=== PATIENT | female | born 1985 | race Caucasian/White ===

== ENCOUNTER 2022-04-24 20:22 | Emergency (ER) | payer BC, SELFPAY ==
--- NOTE | ~2022-04-24 | XR_ITS ---
Portable chest x-ray Comparison: None Clinical History: Shortness of breath, Covid infection Findings: Questionable 1 cm left upper lobe pulmonary nodule. Right lung clear. No pleural effusion or pneumothorax. Cardiomediastinal silhouette is stable. Bones and soft tissues are unremarkable. Impression: Questionable 1 cm left upper lobe pulmonary nodule versus vessel en face. Consider CT to better exclu de pulmonary nodule. Reviewed, dictated and finalized at [facility]. LE MANAGER Impression: Questionable 1 cm left upper lobe pulmonary nodule versus vessel en face. Consi mitesh CT to better exclude pulmonary nodule.
[2022-04-24 20:27] VITALS: BP 113/72; PULSE 117; RESP 20; TEMP 36.2; O2SAT 100
--- NOTE | 2022-04-24 20:39 | ED.URI ---
HPI - URI/Sore Throat General Chief Complaint: Upper Respiratory Infection Stated Complaint: covid test Time Seen by Provider: 04/24/22 20:38 Source: patient Mode of arrival: ambulatory Limitations: no limitations History of Present Illness HPI Narrative: Patient is a 37 y/o female who presents to the ED with c/o URI sx's. Patient reports she developed fevers, cough, congestion, rhinorrhea, sore throat, body aches, headache last Tuesday into Tuesday. Her daughter was diagnosed with COVID-19. Patient has not had herself tested yet. This afternoon, patient began having slight discomfort and pressure in her midsternal chest, in addition to mild difficulty breathing, which prompted her presentation. She attributed some of the pain and difficulty breathing to her anxiety. Patient took anxiety medication and Tylenol around 6 PM and reported improvement of chest pain. She denies pain with deep breathing, nausea, vomiting, abdominal pain. Patient is vaccinated for COVID. Related Data Allergies Allergy/AdvReac Type Severity Reaction Status Date / Time poison moo extract Allergy Mild Unknown Verified 04/24/22 21:19 sertraline [From Zoloft] Allergy Hallucinati Verified 04/24/22 21:19 ng ibuprofen AdvReac Other Verified 04/24/22 21:19 Review of Systems Review of Systems: CONSTITUTIONAL: See HPI. ENT: See HPI. CARDIOVASCULAR: See HPI. RESPIRATORY: See HPI. GASTROINTESTINAL: Denies abdominal pain, nausea, vomiting, or diarrhea. GENITOURINARY: Denies dysuria or hematuria. SKIN: Denies rash or itching. MUSCULOSKELETAL: See HPI. NEUROLOGIC: See HPI. All systems reviewed & are unremarkable except as noted in HPI and below PMFSH Past Medical History Medical History No pertinent past medical history Surgical History Surgical History No pertinent past surgical history Social History Social History Smoking status: Current every day smoker Exam Narrative: GENERAL: Well appearing, well-nourished, non-toxic, in no acute distress. HEAD: Normocephalic, atraumatic. EYES: PERRLA/EOMI, conjunctiva clear. ENT: Normal nose. No nasal discharge. Poor dentition. No significant posterior pharynx erythema. No tonsillar hypertrophy or exudate. Uvula midline. NECK: Supple. No adenopathy, no masses. RESPIRATORY: Airway patent, respirations nonlabored. Clear to auscultation bilaterally, no rales, rhonchi, wheezing. CARDIOVASCULAR: Regular rate and rhythm without murmurs, rubs, or gallops. Radial pulses 2+ and equal bilaterally. ABDOMINAL: Soft, nontender, nondistended, no hepatosplenomegaly. Normoactive BS. MUSCULOSKELETAL: Moves all extremities. Strength/ROM intact without gross deformities. SKIN: Warm, dry, normal color. No rashes. NEURO: A&O X3. Speech clear. Cranial nerves II-XII grossly intact. Steady gait. No ataxic movements. PSYCHIATRIC: Appropriate mood and affect. Normal interaction. Course Vital Signs Vital signs: Vital Signs Temperature 97.1 F L 04/24/22 20:27 Pulse Rate 117 H 04/24/22 20:27 Respiratory Rate 20 04/24/22 20:27 Blood Pressure 113/72 04/24/22 20:27 Pulse Oximetry 100 04/24/22 20:27 Oxygen Delivery Room Air 04/24/22 20:27 Temperature 97.1 F L 04/24/22 20:27 Pulse Rate 64 04/24/22 22:00 Respiratory Rate 14 04/24/22 22:00 Blood Pressure 104/65 04/24/22 22:00 Pulse Oximetry 99 04/24/22 22:00 Oxygen Delivery Room Air 04/24/22 20:27 MDM - URI/Sore Throat MDM Narrative Medical decision making narrative: Patient presented to ED with several day history of upper respiratory symptoms, known exposure to COVID from her daughter. Patient initially mildly tachycardic upon arrival, tachycardia resolved by the time of my evaluation. Patient in no acute distress. ED work-up reassuring. CBC and
--- NOTE | 2022-04-24 20:42 | ECG_ITS ---
Measurements Intervals [place] Rate: 61 P: 52 [place]: 173 QRS: -26 QRSD: 90 T: 59 QT: 385 QTc: 390 Interpretive Statements SINUS RHYTHM INDETERMINATE AXIS ABNORMAL ECG NO PREVIOUS ECG AVAILABLE FOR COMPARISON Electronically Signed On 04-25-2022 11:29:31 HEAD OF INSIGHT by Meliton Ga M.D.
[2022-04-24 21:15] VITALS: BP 107/66; PULSE 64; RESP 18; O2SAT 100
[2022-04-24 21:23] LABS: Basophils Absolute Auto 0.1 K/mm3 (0.0-0.1); Basophils Percent Auto 0.6 % (0.2-1.2); Eosinophils Absolute Auto 0.2 K/mm3 (0-0.3); Eosinophils Percent Auto 2.3 % (0-4.4); Hematocrit 39.3 % (37.0-47.0); Hemoglobin 13.6 g/dL (12.0-15.0); Immature Granulocyte Absolute 0.02 K/mm3 (0.00-0.031); Immature Granulocyte Percent A 0.2 % (0-0.5); Lymphocytes Absolute Auto 3.12 K/mm3 (0.9-3.2); Mean Corpuscular HGB Conc 34.6 g/dl (32-36); Mean Corpuscular Hemoglobin 34.5 pg (26-34); Mean Corpuscular Volume 99.7 fl (80-100); Mean Platelet Volume 9.4 fl (7.4-10.4); Monocytes Absolute Auto 0.9 K/mm3 (0.1-0.6); Monocytes Percent Auto 10.4 % (2.6-8.5); Neutrophils Absolute Auto 4.2 K/mm3 (1.3-6.7); Neutrophils Percent Auto 49.5 % (45.5-73.1); Platelet Count Result 245 k/mm3 (150-375); Red Blood Count 3.94 M/mm3 (4.2-5.4); Red Cell Distribution Width 12.2 % (11.5-14.5); White Blood Count 8.4 K/mm3 (4.5-10.0)
[2022-04-24 21:30] VITALS: BP 101/61; PULSE 61; RESP 15; O2SAT 97
[2022-04-24 21:38] LABS: Alanine Aminotransferase 14 U/L (6-35); Albumin Level 3.8 g/dL (3.5-5.1); Alkaline Phosphatase 43 U/L (38-126); Anion Gap 3 mmol/L (8-16); Aspartate Amino Transferase 19 U/L (14-36); Bilirubin,Total 0.6 mg/dL (0.2-1.3); Blood Urea Nitrogen 12 mg/dL (7-17); Calcium 8.7 mg/dL (8.4-10.2); Carbon Dioxide 30 mmol/L (22-30); Chloride 103 mmol/L (98-107); Estimated Glomerular Filt Rate > 60; Glucose 101 mg/dL (65-110); Potassium 3.3 mmol/L (3.4-5.0); Sodium 136 mmol/L (137-145)
[2022-04-24 21:41] LABS: D Dimer 0.32 ug/mL (<0.48)
[2022-04-24 21:45] VITALS: BP 106/63; PULSE 61; RESP 14; O2SAT 98
[2022-04-24 21:45] LABS: Influenza A QL RT-PCR Negative (Negative); Influenza B QL RT-PCR Negative (Negative); SARS-CoV-2 RNA PCR Negative
[2022-04-24 21:50] LABS: Troponin I < 0.012 ng/mL (0.000-0.034)
[2022-04-24 22:00] VITALS: BP 104/65; PULSE 64; RESP 14; O2SAT 99
== END 2022-04-24 23:43 | disposition home or self-care (01) ==
PROVIDERS: Emergency Provider Physician Assistant; PCP Family Medicine
DX: J06.9 Acute upper respiratory infection, unspecified (principal); F17.200 Nicotine dependence, unspecified, uncomplicated; Z20.822 Contact with and (suspected) exposure to COVID-19
CPT/HCPCS: 36415; 71045; 80053; 84484; 85025; 85380; 87636; 93005; 99284

== ENCOUNTER 2022-04-27 08:42 | Emergency (ER) | payer BC, SELFPAY ==
--- NOTE | ~2022-04-27 | XR_ITS ---
EXAMINATION: XR chest 1V portable DATE: 04/27/2022 09:19 INDICATION: Shortness of breath. Syncope. TECHNIQUE: A single frontal view of the chest was obtained on 2 radiographs. COMPARISON: Chest one view 04/24/2022 FINDINGS: The chest demonstrates clear lungs without pneumonia, pleural effusion, or pneumothorax. Th e heart size is normal. IMPRESSION: 1. No acute cardiopulmonary disease. Reviewed, dictated and finalized at location A. NG BOARD ASSEMBLER
[2022-04-27 08:58] VITALS: BP 112/74; PULSE 60; RESP 16; TEMP 36.9; O2SAT 100
[2022-04-27 09:06] VITALS: O2SAT 99
--- NOTE | 2022-04-27 09:09 | ECG_ITS ---
Measurements Intervals [place] Rate: 54 P: 50 [place]: 161 QRS: 13 QRSD: 92 T: 53 QT: 420 QTc: 398 Interpretive Statements SINUS BRADYCARDIA WITH SINUS ARRHYTHMIA POSSIBLE RIGHT VENTRICULAR CONDUCTION DELAY [RSR (QR) IN V1/V2] COMPARED TO ECG 04/24/2022 21:07:47 SINUS BRADYCARDIA NOW PRESENT SINUS ARRHYTHMIA NOW PRESENT Electronically Signed On 04-27-2022 14:51:07 EVP GENERAL COUNSEL by Polo Avendaño M.D.
--- NOTE | 2022-04-27 09:09 | ED.URI ---
HPI - URI/Sore Throat General Chief Complaint: Upper Respiratory Infection Stated Complaint: back, chest pain Time Seen by Provider: 04/27/22 08:51 History of Present Illness HPI Narrative: Patient with personal history of daily tobacco use presents with recent URI symptoms, she comes in today because she feels sharp pain in her chest and more difficulty breathing for the last 2 days, she states that she does have a family history of heart disease, her mom had stents placed when she was in her mid 40s and her grandmother had stents placed when she was in her 50s. She did follow-up with a machine room engineer in [place] but has not had a doctor since she moved here. Related Data Allergies Allergy/AdvReac Type Severity Reaction Status Date / Time poison moo extract Allergy Mild Unknown Verified 04/24/22 21:19 sertraline [From Zoloft] Allergy Hallucinati Verified 04/24/22 21:19 ng ibuprofen AdvReac Other Verified 04/24/22 21:19 Review of Systems Review of Systems: CONST: No fever. HEENT: Runny nose C/V: chest pain RESP: cough GI: No abdominal pain : No dysuria. M/S: No joint pain. SKIN: No rash. NEURO: [No headache or focal numbness or weakness] PSYCH: Slightly anxious PMFSH Past Medical History Medical History No pertinent past medical history Surgical History Surgical History No pertinent past surgical history Family History Family History (Updated 04/27/22 @ 10:18 by Nancy Ambrocio MD) Other Acute myocardial infarction Social History Social History Smoking status: Current every day smoker Exam Narrative: EXAMINATION OF ORGAN SYSTEMS/BODY AREAS: Constitutional: Vital signs per nursing GENERAL:[No acute distress, non-toxic appearing.] HEAD: Normal with no signs of head trauma. EYES: EOMI, conjunctiva normal ENT: Hearing grossly intact LUNGS: Nonlabored breathing. Clear to auscultation bilaterally HEART: [Regular rate and rhythm] ABD: [Soft], [nontender to palpation] EXT: Normal range of motion, no lower extremity edema or tenderness SKIN: [No rashes or lesions.] NEURO: [Alert and oriented x 3. No gross focal sensory or strength deficits.] PSYCH: Normal affect Course Vital Signs Vital signs: Vital Signs Temperature 98.5 F 04/27/22 08:58 Pulse Rate 60 04/27/22 08:58 Respiratory Rate 16 04/27/22 08:58 Blood Pressure 112/74 04/27/22 08:58 Pulse Oximetry 100 04/27/22 08:58 Temperature 98.5 F 04/27/22 08:58 Pulse Rate 60 04/27/22 08:58 Respiratory Rate 16 04/27/22 08:58 Blood Pressure 112/74 04/27/22 08:58 Pulse Oximetry 99 04/27/22 09:06 Oxygen Delivery Room Air 04/27/22 09:06 MDM - URI/Sore Throat MDM Narrative Medical decision making narrative: ED COURSE AND MEDICAL DECISION MAKING: This 37-year old patient presents with symptoms most suggestive of viral upper respiratory tract infection. Lungs are clear bilaterally without any respiratory distress or accessory muscle use. However given her complaint of chest pain or shortness of breath and recent URI, I will obtain a D-dimer to rule out PE, though she is PERC negative, as well as cardiac work-up given her family history of cardiac disease. EKG - 12-Lead: Performed at 0918. Interpreted by me. [Sinus rhythm]. Rate 54. [Normal] axis. MT-interval [normal]. QRS duration [normal]. QTc [normal]. [No ST segment elevation or depression]. [T-wave normal]. Impression: No EKG evidence of acute ischemia or dysrhythmia. Troponin and ddimer negative, CXR reviewed by myself no signs of PTX, consolidations. No widened mediastinum to suggest dissection and she is overall quite well appearing without neurovascular deficits to suggest this. I did discuss the findings with the patient, she is reassured and demonstrated her precautions, as she has no doctor here I
[2022-04-27 09:26] LABS: Basophils Absolute Auto 0.1 K/mm3 (0.0-0.1); Basophils Percent Auto 0.7 % (0.2-1.2); Eosinophils Absolute Auto 0.2 K/mm3 (0-0.3); Eosinophils Percent Auto 2.4 % (0-4.4); Hematocrit 38.6 % (37.0-47.0); Hemoglobin 13.1 g/dL (12.0-15.0); Immature Granulocyte Absolute 0.02 K/mm3 (0.00-0.031); Immature Granulocyte Percent A 0.2 % (0-0.5); Lymphocytes Absolute Auto 2.66 K/mm3 (0.9-3.2); Lymphocytes Percent Auto 32.4 % (18.3-44.2); Mean Corpuscular HGB Conc 33.9 g/dl (32-36); Mean Corpuscular Hemoglobin 34.6 pg (26-34); Mean Corpuscular Volume 101.8 fl (80-100); Mean Platelet Volume 9.6 fl (7.4-10.4); Monocytes Absolute Auto 0.7 K/mm3 (0.1-0.6); Neutrophils Absolute Auto 4.5 K/mm3 (1.3-6.7); Neutrophils Percent Auto 55.3 % (45.5-73.1); Platelet Count Result 229 k/mm3 (150-375); Red Blood Count 3.79 M/mm3 (4.2-5.4); Red Cell Distribution Width 12.2 % (11.5-14.5); White Blood Count 8.2 K/mm3 (4.5-10.0)
[2022-04-27 09:57] LABS: Anion Gap 0 mmol/L (8-16); Blood Urea Nitrogen 10 mg/dL (7-17); Calcium 8.2 mg/dL (8.4-10.2); Carbon Dioxide 27 mmol/L (22-30); Chloride 107 mmol/L (98-107); D Dimer 0.39 ug/mL (<0.48); Estimated CRCL calculation 92 ml/min; Estimated Glomerular Filt Rate > 60; Glucose 92 mg/dL (65-110); Potassium 3.8 mmol/L (3.4-5.0); Sodium 134 mmol/L (137-145)
[2022-04-27 10:06] LABS: Troponin I < 0.012 ng/mL (0.000-0.034)
[2022-04-27 10:36] VITALS: BP 101/68; PULSE 55; RESP 20; O2SAT 100
== END 2022-04-27 10:37 | disposition home or self-care (01) ==
PROVIDERS: Emergency Provider Emergency Medicine
DX: J06.9 Acute upper respiratory infection, unspecified (principal); R07.9 Chest pain, unspecified; F17.200 Nicotine dependence, unspecified, uncomplicated; R00.1 Bradycardia, unspecified; R94.31 Abnormal electrocardiogram [ECG] [EKG]
CPT/HCPCS: 36415; 71045; 80048; 84484; 85025; 85380; 93005; 99284

== ENCOUNTER 2022-07-10 14:30 | Emergency (ER) | payer BC, SELFPAY ==
[2022-07-10 14:56] VITALS: BP 118/78; PULSE 60; RESP 18; TEMP 36.4; O2SAT 100
[2022-07-10 15:42] LABS: Basophils Absolute Auto 0.1 K/mm3 (0.0-0.1); Basophils Percent Auto 0.6 % (0.2-1.2); Eosinophils Absolute Auto 0.2 K/mm3 (0-0.3); Eosinophils Percent Auto 2.4 % (0-4.4); Hematocrit 44.7 % (37.0-47.0); Hemoglobin 14.8 g/dL (12.0-15.0); Immature Granulocyte Absolute 0.02 K/mm3 (0.00-0.031); Immature Granulocyte Percent A 0.2 % (0-0.5); Lymphocytes Absolute Auto 3.04 K/mm3 (0.9-3.2); Lymphocytes Percent Auto 36.6 % (18.3-44.2); Mean Corpuscular HGB Conc 33.1 g/dl (32-36); Mean Corpuscular Hemoglobin 33.9 pg (26-34); Mean Corpuscular Volume 102.5 fl (80-100); Mean Platelet Volume 9.1 fl (7.4-10.4); Monocytes Absolute Auto 0.9 K/mm3 (0.1-0.6); Monocytes Percent Auto 10.2 % (2.6-8.5); Neutrophils Absolute Auto 4.1 K/mm3 (1.3-6.7); Platelet Count Result 263 k/mm3 (150-375); Red Blood Count 4.36 M/mm3 (4.2-5.4); Red Cell Distribution Width 11.7 % (11.5-14.5); White Blood Count 8.3 K/mm3 (4.5-10.0)
[2022-07-10 15:44] LABS: Alanine Aminotransferase 14 U/L (6-35); Albumin Level 4.2 g/dL (3.5-5.1); Alkaline Phosphatase 55 U/L (38-126); Anion Gap 4 mmol/L (8-16); Aspartate Amino Transferase 17 U/L (14-36); Bilirubin,Total 0.8 mg/dL (0.2-1.3); Blood Urea Nitrogen 8 mg/dL (7-17); Calcium 8.7 mg/dL (8.4-10.2); Carbon Dioxide 28 mmol/L (22-30); Chloride 106 mmol/L (98-107); Estimated CRCL calculation 95 ml/min; Estimated Glomerular Filt Rate > 60; Glucose 86 mg/dL (65-110); Lipase 59 U/L (23-300); Potassium 4.2 mmol/L (3.4-5.0); Sodium 138 mmol/L (137-145)
--- NOTE | 2022-07-10 16:56 | ED.ABDPAIN ---
HPI - Abdominal Pain General Chief Complaint: Abdominal Pain Stated Complaint: MIGRAINE ROSADO,ABD PAIN Time Seen by Provider: 07/10/22 16:38 History of Present Illness HPI narrative: 37-year-old female presented the to emergency department for evaluation of migraine and intermittent abdominal pain. Patient states he does have prior history of migraines but states that she has had worsening headache over the last few days. Patient states she has also had intermittent nausea and decreased p.o. intake. Related Data Allergies Allergy/AdvReac Type Severity Reaction Status Date / Time poison moo extract Allergy Mild Unknown Verified 07/10/22 17:39 sertraline [From Zoloft] Allergy Hallucinati Verified 07/10/22 17:39 ng ibuprofen AdvReac Other Verified 07/10/22 17:39 Review of Systems Review of Systems: All systems reviewed & are unremarkable except as noted in HPI and below PMFSH Past Medical History Medical History No pertinent past medical history Surgical History Surgical History No pertinent past surgical history Family History Family History (Updated 04/27/22 @ 10:18 by Nancy Ambrocio MD) Other Acute myocardial infarction Social History Social History Smoking status: Current every day smoker Exam Narrative: APPEARANCE: Well appearing, no pain, no distress, well-nourished. HEAD: normocephalic, atraumatic. EYES: PERRLA/EOMI, conjunctivae clear. NOSE: Normal no drainage EARS:TMS clear with good light reflex. THROAT: Pharynx clear, no exudate. NECK: Supple. No adenopathy, no masses. RESPIRATORY: Airway patent, respirations nonlabored. Clear to auscultation bilaterally, no rales, rhonchi, wheezing. CARDIOVASCULAR: Regular rate and rhythm without murmurs rubs or gallops. ABDOMINAL: Soft, nontender, nondistended, normal bowel sounds MUSCULOSKELETAL: Moves all extremities. Strength/ROM intact, No edema, No calf tenderness. NEURO: Alert. Cranial nerves II through XII intact. Grossly intact SKIN: Warm, dry. Normal Color Course Course Emergency Course: Patient does feel improved with treatment. Patient is afebrile with no leukocytosis. Patient's headache is resolved. UA shows no evidence of urinary tract infection. Patient did request a note excusing her from work today. Patient will also be provided outpatient follow-up with a primary care physician. All questions concerns were addressed. Vital Signs Vital signs: Vital Signs Temperature 97.6 F 07/10/22 14:56 Pulse Rate 60 07/10/22 14:56 Respiratory Rate 18 07/10/22 14:56 Blood Pressure 118/78 07/10/22 14:56 Pulse Oximetry 100 07/10/22 14:56 Oxygen Delivery Room Air 07/10/22 14:56 Temperature 97.6 F 07/10/22 14:56 Pulse Rate 46 L 07/10/22 19:30 Respiratory Rate 15 07/10/22 19:30 Blood Pressure 110/80 07/10/22 19:30 Pulse Oximetry 100 07/10/22 19:30 Oxygen Delivery Room Air 07/10/22 14:56 MDM - Abdominal Pain Lab Data 07/10/22 15:27 07/10/22 15:27 Labs: Lab Results 07/10/22 07/10/22 07/10/22 Range/Units 15:27 15:27 16:48 WBC 8.3 (4.5-10.0) K/mm3 RBC 4.36 (4.2-5.4) M/mm3 Hgb 14.8 (12.0-15.0) g/dL Hct 44.7 (37.0-47.0) % MCV 102.5 H (80-100) fl MCH 33.9 (26-34) pg MCHC 33.1 (32-36) g/dl RDW 11.7 (11.5-14.5) % Plt Count 263 (150-375) k/mm3 MPV 9.1 (7.4-10.4) fl Immature Gran % (Auto) 0.2 (0-0.5) % Neut % (Auto) 50.0 (45.5-73.1) % Lymph % (Auto) 36.6 (18.3-44.2) % [place] % (Auto) 10.2 H (2.6-8.5) % Eos % (Auto) 2.4 (0-4.4) % Baso % (Auto) 0.6 (0.2-1.2) % Lymph # (Auto) 3.04 (0.9-3.2) K/mm3 [place] # (Auto) 0.9 H (0.1-0.6) K/mm3 Eos # (Auto) 0.2 (0-0.3) K/mm3 Baso # (Auto) 0.1 (0.0-0.1) K/mm3 Abs Immat Gran (auto) 0.02 (0.0
[2022-07-10 17:07] LABS: Appearance Urine Cloudy (Clear); Bacteria Urine 1+ /hpf; Bilirubin Urine Negative (Negative); Blood Urine 2+ (Negative); Color Urine Yellow (Yellow); Glucose Urine UA Negative (Negative); Ketones Urine Negative (Negative); Leukocyte Esterase Ur Trace LEU/UL (Negative); Need Manual Microscopic Reviewed; Nitrate Urine Negative (Negative); Non Pathogenic Casts 0-2; Protein Urine Negative (Negative); RBC Urine 0-2 /hpf (0-2); Specific Grav Ur 1.017 (1.001-1.035); Squamous Epithelial Cell Urine Moderate /hpf (Few); Urobilinogen Urine 0.2 mg/dL (<2.0); WBC Urine 0-5 /hpf; pH Urine 6.5 (5.0-9.0)
[2022-07-10 17:08] LABS: Add Urine Microscopic? YES
[2022-07-10] MEDS: SODIUM CHLORIDE 0.9% IV 1,000 ML 999 ML IV CONT (17:23)
[2022-07-10] MEDS: BELLADONNA ALK/PHENOB ELIX 10 ML, MAG HYDROX/ALUMINUM HYD/SIMETH 30 ML, LIDOCAINE HCL 2... PO (17:24)
[2022-07-10] MEDS: PROCHLORPERAZINE EDISYLATE 10 MG/2 ML VIAL IV PUSH (17:26)
[2022-07-10] MEDS: diphenhydrAMINE HCl INJ 50 MG/ML VIAL 25 MG IV PUSH (17:26)
[2022-07-10] MEDS: PANTOPRAZOLE SODIUM IV 40 MG VIAL IV PUSH (17:27)
[2022-07-10 17:39] VITALS: BP 106/70; PULSE 60; RESP 16; O2SAT 100
[2022-07-10 19:16] VITALS: BP 121/73; PULSE 46; RESP 12; O2SAT 100
[2022-07-10 19:30] VITALS: BP 110/80; PULSE 46; RESP 15; O2SAT 100
== END 2022-07-10 19:35 | disposition home or self-care (01) ==
PROVIDERS: Emergency Medicine; Emergency Provider Emergency Medicine
DX: G43.909 Migraine, unspecified, not intractable, without status migrainosus (principal); F17.200 Nicotine dependence, unspecified, uncomplicated
CPT/HCPCS: 36415; 80053; 81001; 81025; 83690; 85025; 96361; 96374; 96375; 99284; A9270; C9113; J0780; J1200; J7030